=== PATIENT | male | born 1960 | race Caucasian/White ===

== ENCOUNTER 2021-09-15 13:24 | Emergency (ER) | payer OTHER, SELFPAY ==
[2021-09-15 13:33] VITALS: BP 139/92; PULSE 79; RESP 20; TEMP 37.1; O2SAT 97
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
--- NOTE | 2021-09-15 14:15 | DI.RAD_ITS ---
Exam(s) XR CLAVICLE LT EXAM: XR CLAVICLE LT CLINICAL HISTORY: fall onto L shoulder, suspect clavicle fx TECHNIQUE: 2D digital imaging was performed. Two views COMPARISON: No exams were available for comparison FINDINGS: BONES: Fracture at the mid to distal 3rd of the clavicle. Inferior displacement of distal fractured portion. Comminuted fragments between the 2 main fragments.. No bony destructive lesion is seen. JOINTS: AC joint not widened. Degenerative changes are seen at the AC joint SOFT TISSUE: Unremarkable. IMPRESSION: Comminuted midclavicular fracture DATA REPOSITORY: RADIATION DOSE DELIVERED:
[2021-09-15] MEDS: Ibuprofen 600 MG TAB PO (14:58)
[2021-09-15 16:12] VITALS: BP 161/87; PULSE 61; TEMP 36.7; O2SAT 99
== END 2021-09-15 16:18 | disposition home or self-care (01) ==
PROVIDERS: Emergency Provider Physician Assistant
DX: S42.002A Fracture of unspecified part of left clavicle, initial encounter for closed fracture (principal); V18.4XXA Pedal cycle driver injured in noncollision transport accident in traffic accident, initial encounter; Y93.55 Activity, bike riding
CPT/HCPCS: 99283; 73000; 99284